=== PATIENT | male | born 1940 | race Caucasian/White ===

== ENCOUNTER 2020-03-20 11:11 | Observation (INO) ==
[2020-03-20] MEDS ORDERED: NS 0.9% 1000 ml BAG 1,000 ML IV ONE (11:32)
[2020-03-20] MEDS ORDERED: Diltiazem IV push/loading dose 5 MG/ML 5 ML vial (25 mg) IV SLOW PU ONE (12:19)
[2020-03-20 12:33] LABS: ABS Lymphocytes 0.4 10^3/ul (1.0-4.8); ABS Monocytes 0.3 10^3/ul (0-0.8); ABS Neutrophils 4.2 10^3/ul (1.5-7.7); Hematocrit 46 % (42-52); Hemoglobin 15.3 g/dL (14.0-18.0); Lymphocyte % 8.7 %; Mean Corpuscular HGB Conc 33 g/dL (31-36); Mean Corpuscular Hemoglobin 33 pg (27-31); Mean Corpuscular Volume 99 fL (80-94); Mean Platelet Volume 10.1 fL (7.4-10.4); Nucleated Red Blood Cells % 0.1; Platelet Count 107 10^3/uL (150-450); Red Blood Count 4.67 10^6 /uL (4.18-5.48); Red Cell Distribution Width 19 % (10-15); White Blood Count 5.1 10^3/uL (3.5-10.8)
[2020-03-20 12:43] LABS: Activated Partial Thrombo Time 34.1 seconds (26.0-38.0); INR 1.26 (0.82-1.09)
[2020-03-20 12:52] LABS: ALT 27 U/L (7-52); AST 35 U/L (13-39); Albumin 4.2 g/dL (3.2-5.2); Albumin/Globulin Ratio 1.8 (1-3); Alkaline Phosphatase 87 U/L (34-104); Anion Gap 9 mmol/L (2-11); BUN/Creatinine Ratio 27.7 (8-20); Blood Urea Nitrogen 26 mg/dL (6-24); CO2 Carbon Dioxide 25 mmol/L (22-32); Calcium 9.7 mg/dL (8.6-10.3); Chloride 106 mmol/L (101-111); EGFR African American 93.7 (>60); EGFR Non-African American 77.4 (>60); Globulin 2.3 g/dL (2-4); Glucose 116 mg/dL (70-100); Magnesium 1.9 mg/dL (1.9-2.7); Potassium 4.2 mmol/L (3.5-5.0); Sodium 140 mmol/L (135-145); Total Protein 6.5 g/dL (6.4-8.9)
[2020-03-20 12:56] LABS: Troponin I 0.05 ng/mL (<0.03)
[2020-03-20] MEDS ORDERED: Furosemide 40 mg/4 ml IV VIAL IV ONE (12:59)
[2020-03-20 13:11] LABS: TSH Ultra Thyroid Stim Horm 3.42 mcIU/mL (0.34-5.60)
[2020-03-20] MEDS ORDERED: Diltiazem IV BAG D5W Premix 125 MG/125 ML BAG IV SCH (14:00)
[2020-03-20 15:45] LABS: Troponin I 0.05 ng/mL (<0.03)
[2020-03-20 19:06] LABS: Troponin I 0.04 ng/mL (<0.03)
[2020-03-21 05:51] LABS: CO2 Carbon Dioxide 20 mmol/L (22-32); Calcium 8.4 mg/dL (8.6-10.3); Chloride 109 mmol/L (101-111); Sodium 138 mmol/L (135-145)
[2020-03-21 05:56] LABS: BUN/Creatinine Ratio 29.3 (8-20); Blood Urea Nitrogen 24 mg/dL (6-24); EGFR African American 109.7 (>60); EGFR Non-African American 90.6 (>60); Glucose 99 mg/dL (70-100)
[2020-03-21 06:08] LABS: Anion Gap 9 mmol/L (2-11)
[2020-03-21 06:21] LABS: ABS Eosinophils 0.1 10^3/ul (0-0.6); ABS Lymphocytes 0.5 10^3/ul (1.0-4.8); ABS Monocytes 0.3 10^3/ul (0-0.8); ABS Neutrophils 2.5 10^3/ul (1.5-7.7); Eosinophil % 2.3 %; Hematocrit 37 % (42-52); Hemoglobin 12.6 g/dL (14.0-18.0); Lymphocyte % 13.9 %; Mean Corpuscular HGB Conc 34 g/dL (31-36); Mean Corpuscular Hemoglobin 33 pg (27-31); Mean Corpuscular Volume 99 fL (80-94); Mean Platelet Volume 11.6 fL (7.4-10.4); Red Blood Count 3.79 10^6 /uL (4.18-5.48); Red Cell Distribution Width 19 % (10-15); White Blood Count 3.4 10^3/uL (3.5-10.8)
[2020-03-21] MEDS: Potassium Chlor 20 meq TAB.ER PO SCH (08:22)
[2020-03-21 08:45] LABS: Platelet Count 81 10^3/uL (150-450)
[2020-03-21] MEDS ORDERED: Perflutren Lipid Microsphere 3 ML VIAL ONE (09:20)
[2020-03-21 10:38] LABS: Magnesium 1.8 mg/dL (1.9-2.7); Potassium Redraw 3.8 mmol/L (3.5-5.0)
[2020-03-21] MEDS ORDERED: Magnesium Sulfate 2 gm BAG 2 GM/50 ML BAG IVPB ONE (12:30)
[2020-03-22 06:37] LABS: Hematocrit 40 % (42-52); Hemoglobin 13.6 g/dL (14.0-18.0); Mean Corpuscular HGB Conc 34 g/dL (31-36); Mean Corpuscular Hemoglobin 33 pg (27-31); Mean Corpuscular Volume 98 fL (80-94); Mean Platelet Volume 11.2 fL (7.4-10.4); Platelet Count 97 10^3/uL (150-450); Red Cell Distribution Width 19 % (10-15); White Blood Count 3.9 10^3/uL (3.5-10.8)
[2020-03-22 06:50] LABS: BUN/Creatinine Ratio 30.4 (8-20); EGFR Non-African American 79.4 (>60); Magnesium 2.1 mg/dL (1.9-2.7); Potassium 4.3 mmol/L (3.5-5.0)
[2020-03-22] MEDS: Potassium Chlor 20 meq TAB.ER PO SCH (07:56)
[2020-03-22] MEDS ORDERED: Furosemide 20 mg/2 ml IV VIAL IV ONE (12:31)
[2020-03-22 16:28] VITALS: BP 107/72
== END 2020-03-22 18:10 | disposition short-term general hospital (02) ==
LOC: ED 11:11 → MEDTELE 11:11
PROVIDERS: ADMIT Internal Medicine; ATTEND Internal Medicine